=== PATIENT | female | born 1995 | race Caucasian/White ===

== ENCOUNTER 2018-01-13 16:07 | Emergency (ER) | payer OTHER ==
[~2018-01-13 16:07] MED LIST: EMTRICITABINE/TENOFOVIR 200MG/300MG TAB PO SCH; RALTEGRAVIR 400 MG TAB PO SCH
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
[2018-01-13] MEDS ORDERED: AZITHROMYCIN 250 MG TAB PO ONE (21:16)
[2018-01-13] MEDS ORDERED: ONDANSETRON DISINTEGRATING 4 MG TAB PO ONE (21:16)
[2018-01-13] MEDS ORDERED: RALTEGRAVIR 400 MG TAB PO ONE (21:32)
[2018-01-13] MEDS ORDERED: EMTRICITABINE/TENOFOVIR 200MG/300MG TAB PO ONE (22:03)
[2018-01-14 00:10] VITALS: BP 118/76
[2018-01-14 01:54] LABS: HEPATITIS B SURFACE ANTIGEN NEGATIVE (NEGATIVE)
[2018-01-14 02:21] LABS: HEPATITIS C ANTIBODY TOTAL NEGATIVE (NEGATIVE)
[2018-01-14 04:24] LABS: HEPATITIS B CORE AB TOTAL NEGATIVE (NEGATIVE)
[2018-01-14 04:37] LABS: HIV TYPE 1 AND 2 NEGATIVE (NEGATIVE)
[2018-01-14] MEDS ORDERED: EMTRICITABINE/TENOFOVIR 200MG/300MG TAB PO SCH (08:00)
== END 2018-01-13 22:45 | disposition home or self-care (01) ==
LOC: EEVIPCON 16:07
DX: T74.21XA Adult sexual abuse, confirmed, initial encounter (principal); J45.909 Unspecified asthma, uncomplicated; Y07.9 Unspecified perpetrator of maltreatment and neglect; Y92.89 Other specified places as the place of occurrence of the external cause; Y99.8 Other external cause status; Y93.89 Activity, other specified
CPT/HCPCS: 86704-90; G0472; J0696

== ENCOUNTER 2018-05-28 06:00 | Emergency (ER) | payer OTHER ==
[2018-05-28 06:05] VITALS: BP 111/65
== END 2018-05-28 06:27 | disposition left against medical advice (07) ==
DX: Z53.21 Procedure and treatment not carried out due to patient leaving prior to being seen by health care provider (principal)